=== PATIENT | female | born 1965 | race Caucasian/White ===

== ENCOUNTER 2020-08-23 08:37 | Outpatient (NON) | payer OTHER, SELFPAY ==
[2020-08-24 00:38] LABS: SARS-CoV-2 RNA PCR Negative
== END 2020-08-23 08:38 ==
PROVIDERS: PCP Family Medicine; Visit Provider Nurse Practitioner Family
DX: R68.89 Other general symptoms and signs (principal); Z20.828 Contact with and (suspected) exposure to other viral communicable diseases
CPT/HCPCS: 87635; C9803; U0003

== ENCOUNTER 2020-09-28 06:39 | Outpatient (NON) | payer OTHER, SELFPAY ==
[2020-09-29 14:57] LABS: SARS-CoV-2 RNA PCR Negative
== END 2020-09-28 06:40 ==
PROVIDERS: PCP Family Medicine; Visit Provider Physician Assistant Medical
DX: Z20.828 Contact with and (suspected) exposure to other viral communicable diseases (principal); R68.89 Other general symptoms and signs
CPT/HCPCS: 87635; C9803; U0003

== ENCOUNTER 2021-06-29 16:37 | Outpatient (CLI) | payer OTHER, SELFPAY ==
--- NOTE | ~2021-06-29 | MM_ITS ---
EXAMINATION: MM screening [facility] BI w jane HISTORY: Screening TECHNIQUE: Craniocaudal and mediolateral oblique 3-D tomosynthesis images were obtained and synthetic 2-D images were generated. CAD analysis was submitted and interpreted. COMPARISON: 03/28/2016 BREAST PARENCHYMAL COMPOSITION: There are scattered areas of fibroglandular density. FINDINGS: There is a new mass in the lower inner quadrant of the right breast, middle third, measurin g approximately 11 mm maximum dimension. The left breast is stable. Benign-appearing left breast masses and asymmetries are unchanged. IMPRESSION: 1. New 11 mm right breast mass, lower inner quadrant. 2. Additional mammographic views and possible breast ultrasound are recommended. BI-RADS Category 0: Incomplete: Needs additional imaging evaluation. Reviewed, dictated and finalized at location A. IMPRESSION: 1. New 11 mm right breast mass, lower inner quadrant. 2. Additional mammographic views and possible breast ultrasound are recommended . BI-RADS Category 0: Incomplete: Needs additional imaging evaluation.
== END 2021-06-29 16:38 | disposition home or self-care (01) ==
LOC: ANHIMG 16:41
PROVIDERS: PCP Family Medicine; Visit Provider Nurse Practitioner Family
DX: Z12.31 Encounter for screening mammogram for malignant neoplasm of breast (principal); R92.8 Other abnormal and inconclusive findings on diagnostic imaging of breast
CPT/HCPCS: 77063; 77067

== ENCOUNTER 2021-07-28 13:10 | Outpatient (CLI) | payer OTHER, SELFPAY ==
--- NOTE | ~2021-07-28 | MMUS_ITS ---
EXAMINATION: MM diagnostic maribel RT w jane, US breast RT complete HISTORY: New 11 mm lower inner quadrant right breast mass reported on 06/29/2021 screening mammogram e xaminations TECHNIQUE: Additional 3-D tomosynthesis images of the right breast were performed and synthetic 2-D i mages were generated. CAD analysis was submitted and interpreted. High resolution complete right raman st ultrasound was performed. COMPARISON: 06/29/2021 bilateral digital screening mammogram 03/28/2016 bilateral diagnostic digital mammogram and limited right breast ultrasound examination. Leah ast changes FINDINGS: MAMMOGRAPHIC FINDINGS: There is an approximately 7 x 9.5 mm circumscribed low-density opacity in the posterior aspect of the lower inner quadrant of the right breast. Additional scattered smaller low-density nodular opacities are noted. There is minimal benign calcification. No malignant calcification, skin thickening or retraction is e vident. ULTRASOUND: 5:00 5 cm from nipple: There is a circumscribed solid lesion measuring 5.8 x 10.9 x 8.1 mm. The kate ns are mildly irregular and there is internal vascularity on color flow imaging. Ultrasound-guided bi opsy is recommended. 8:00 2 cm from nipple: There is a parallel circumscribed heterogeneous hypoechoic lesion measuring 12 .6 x 4.6 x 8.7 mm, without internal vascularity or suspicious shadowing. IMPRESSION: 1. Indeterminate solid 5.8 x 10.9 x 8.1 mm mass at 5:00 5 cm from nipple, with mildly irregular sonog raphic margins 2. Ultrasound-guided biopsy of 5:00 lesion is recommended BI-RADS category 4, suspicious findings. Reviewed, dictated and finalized at location A. IMPRESSION: 1. Indeterminate solid 5.8 x 10.9 x 8.1 mm mass at 5:00 5 cm from nipple, with mildly irregular sonographic margins 2. Ultrasound-guided biopsy of 5:00 lesion is recommended BI-RADS category 4, suspicious findings.
== END 2021-07-28 13:11 | disposition home or self-care (01) ==
LOC: ANHIMG 13:12
PROVIDERS: PCP Family Medicine; Visit Provider Nurse Practitioner Family
DX: N63.14 Unspecified lump in the right breast, lower inner quadrant (principal); N63.13 Unspecified lump in the right breast, lower outer quadrant
CPT/HCPCS: 76641; 77061; 77065; G0279

== ENCOUNTER 2021-08-17 09:08 | Outpatient (CLI) | payer OTHER, SELFPAY ==
--- NOTE | ~2021-08-17 | MMUS_ITS ---
US breast biopsy RT w image, MM post biopsy invasive RT EXAMINATION: US GUIDED NEEDLE BIOPSY WITH VAC UUM ASSISTANCE DATE: 08/17/2021 11:06 CDT INDICATION: Right breast mass seen on recent examination. Ultrasound-guided core biopsy is requested to evaluate for malignancy. TECHNIQUE AND FINDINGS: The risks and potential benefits of the procedure were discussed with the patient, and written inform ed consent was obtained. After sterile preparation of the right breast, 1% lidocaine was utilized fo r local anesthesia. 1% lidocaine with epinephrine was used for deep anesthesia. A 10G vacuum-assisted biopsy gun needle was advanced through to the outer edge of the region of inter est from a inferior approach utilizing sonographic guidance. A total of three tissue core samples we re obtained through the lesion. An Inrad tissue marker clip was then placed at the biopsy site. Hemo stasis was achieved. The patient tolerated procedure well and there was no evidence of immediate complication. The patien t was given verbal instructions partly is from the department. Right breast mammograms to document t issue marker clip placement in the lower inner quadrant.. The tissue samples were submitted to surgic al pathology for histologic analysis. IMPRESSION: 1. Successful ultrasound-guided vacuum-assisted biopsy of right breast mass with tissue marker place ment. Please refer to pathology report for histologic analysis. Reviewed, dictated and finalized at location A. IMPRESSION: 1. Successful ultrasound-guided vacuum-assisted biopsy of right breast mass wi th tissue marker placement. Please refer to pathology report for histologic lacie lysis.
== END 2021-08-17 09:09 | disposition home or self-care (01) ==
PROVIDERS: PCP Family Medicine; Visit Provider Nurse Practitioner Family
DX: R92.8 Other abnormal and inconclusive findings on diagnostic imaging of breast (principal); D49.3 Neoplasm of unspecified behavior of breast
CPT/HCPCS: 19083; 88305; A4648

== ENCOUNTER 2021-12-04 13:59 | Outpatient (CLI) | payer OTHER, SELFPAY ==
[2021-12-04 15:14] LABS: Anion Gap 9 mmol/L (8-16); Blood Urea Nitrogen 23 mg/dL (7-17); Calcium 9.7 mg/dL (8.4-10.2); Carbon Dioxide 32 mmol/L (22-30); Chloride 99 mmol/L (98-107); Estimated Glomerular Filt Rate 58; Glucose 117 mg/dL (65-110); Potassium 2.9 mmol/L (3.4-5.0); Sodium 140 mmol/L (137-145)
== END 2021-12-04 14:00 | disposition home or self-care (01) ==
LOC: ANHSURGERY 14:02
PROVIDERS: Anesthesiology; PCP Family Medicine; Visit Provider Surgery
DX: Z79.899 Other long term (current) drug therapy (principal); Z01.818 Encounter for other preprocedural examination
CPT/HCPCS: 36415; 80048

== ENCOUNTER 2021-12-05 00:49 | Day surgery (SDC) | payer BC, OTHER, SELFPAY ==
[2021-12-01 11:35] VITALS: BMI 32.0
--- NOTE | 2021-12-01 11:56 | PC.NURSE ---
Report to the Outpatient Waiting Room, entrance under the green pavilion located off [facility], at time 8:30 on date 12/05/21. OR Time: 11:30. - You will be asked a series of questions to screen for COVID 19 for your protection. - A mask is required within the hospital. - No visitors are allowed at this time. Preoperative COVID Testing Requirements: TO BRING COPY OF CARD No COVID Test needed if: (proof is required; if not received patient will have Rapid Test prior to entry) - Patient has received COVID Vaccine at least 14 days prior to procedure date or - Patient has positive COVID test result within last 90 days of surgery date. COVID Test needed if above criteria is not met If not COVID vaccinated a COVID test must be conducted within 72 hours of surgery and patient is asked to isolate self from time of testing until procedure. You will go to the [facility] for your COVID testing. The [facility] is located at the corner of [address] from [facility]. You will only be called if COVID results are positive and your surgeon may reschedule your elective surgery date. Patients may have clear liquids (water, carbonated beverages, clear teas, apple juice) until 3 hours prior to surgery with a maximum of 20 ounces. - No food from midnight until time of surgery - Infants may have breast milk until 4 hours before surgery, infant formula 6 hours prior to surgery. - Children will be allowed to drink immediately following surgery. If applicable, please bring a bottle or sippy cup to assist with drinking. Juice, water, soda, and popsicles are readily available. For infants on formula, please bring formula the day of surgery. Pacifiers are allowed. Take the following medications with a SIP of water the morning of surgery: ALBUTEROL, XANAX, PAIN PILL (ALL ONLY IF NEEDED) Medications to discontinue per physician: N/A Date to take last dose: N/A Please no make-up, nail beninese, hairspray, perfume, deodorant, or body powder the day of surgery. No jewelry (including any body piercings) or valuables the day of surgery, leave them at home. Please take a shower or bath the night before, or the morning of, surgery with an antibacterial soap. Wear comfortable, loose fitting clothing. HIBICLENS SHOWER - Jewelry must be removed prior to entering the operating room. Rings and piercings that are not removed may be cut off. - The hospital will not accept responsibility for valuables. - Please leave all valuables, including medications, at home the day of surgery. If you are going home after surgery, a licensed tow truck driver must drive you home. - NO public transportation without another adult. - We recommend that an adult stay with you for 24 hours following discharge. - We also recommend that you do not drive, make important decision, drink alcoholic beverages, or take any drugs that were not prescribed by your health care provider for at least 24 hours after your discharge time. Follow any additional instructions given to you from your surgeon. Telephone instructions given to JACEK SIMONS and asked if any additional questions and then verbalized understanding. Patient advised to call surgeon office or pre surgery nurse liaison [phone] if any additional questions.
[2021-12-05] VITALS (7 sets, daily range): BP systolic 115–145; BP diastolic 61–81; PULSE 67–85; RESP 16–20; TEMP 36.3–36.8; O2SAT 94–100
--- NOTE | ~2021-12-05 | MM_ITS ---
EXAMINATION: MM needle loc RT, MM surgical specimen RT MAMMOGRAPHY SPECIMEN DATE: 12/05/2021 12:07 ELECTRICAL INSTALLATION SUPERVISOR INDICATION: Abnormal right breast mammogram. TECHNIQUE: The procedure for a mammography-guided needle localization was discussed with the patient' s. Risks and benefits were detailed, including risks of bleeding, infection, pain, and nondiagnostic specimen. The patient verbalized understanding and agreed to proceed. The time out was performed to verify the patient's name, date of , and site of procedure. The p atient was placed in right breast compression, and the skin overlying the right breast was prepped in usual fashion. Utilizing mammography guidance, a needle was advanced into the right breast. Two co nfirmatory films were obtained. The patient tolerated procedure without immediate complication. A specimen radiograph was performed.] FINDINGS: Two view confirmatory films of the right breast demonstrate a the wire adjacent to the main mass and tissue marker. The mass and tissue marker are contained within the surgical specimen.] IMPRESSION: 1. Successful mammography-guided right breast needle localization. Reviewed, dictated and finalized at location A. TRICAL INSTALLATION SUPERVISOR IMPRESSION: 1. Successful mammography-guided right breast needle localization.
[2021-12-05] MEDS: ACETAMINOPHEN 500 MG TABLET 1000 MG PO (09:19)
[2021-12-05] MEDS: KETOROLAC 15 MG/ML VIAL (*BKC) IV PUSH (09:20)
--- NOTE | 2021-12-05 10:45 | WPDANESEPPF ---
Anes - Initial Pre Proc Eval Procedure: Operation Date: 12/05/21 11:30 Proposed Procedures p Right Breast Lumpectomy with Ultrasound and/or Mammogram Guided Needle Localization - Ari Stinson DO Date/Time: 12/05/21 10:45 Surgeon: Ari Stinson DO Pre Op Diagnosis: abnormal mammogram right breast Patient Data Age: 55 Gender: F Height: 1.57 m Weight: 79.6 kg Last Vital Signs Temp 36.8 C 12/05/21 09:15 Pulse 73 12/05/21 09:15 Resp 16 12/05/21 09:15 BP 145/81 H 12/05/21 09:15 Pulse Ox 99 12/05/21 09:15 Allergies Allergy/AdvReac Type Severity Reaction Status Date / Time Penicillins Allergy Unknown Other Verified 12/05/21 10:22 Home Medications Medication Instructions Recorded Confirmed Type triamterene 75 See Rx Instructions .ROUTE 05/30/21 12/05/21 History mg-hydrochlorothiazide 50 mg tablet .COMPLEX tablet albuterol sulfate 90 mcg/actuation 2 inh INHALATION Q6H PRN #18 g 08/01/21 12/05/21 Rx aerosol inhaler estradiol 0.05 mg-norethindrone 1 patch TRANSDERMAL 2XW 09/18/21 12/05/21 History 0.14 mg/24 hr semiwkly transderm patch atorvastatin 10 mg tablet See Rx Instructions .ROUTE 09/25/21 12/05/21 Rx .COMPLEX #90 tablet benzonatate 100 mg capsule 100 mg PO TID PRN #30 cap 10/30/21 12/05/21 Rx hydrocodone 7.5 mg-acetaminophen 1 tablet PO DAILY #30 tablet 11/20/21 12/05/21 Rx 325 mg tablet tizanidine 4 mg tablet See Rx Instructions .ROUTE 11/20/21 12/05/21 Rx .COMPLEX #60 tablet alprazolam 1 mg tablet 2 mg PO QHS PRN #60 tablet 11/30/21 12/05/21 Rx dextroamphetamine-amphetamine 20 20 mg PO DAILY #30 tablet 11/30/21 12/05/21 Rx mg tablet duloxetine 60 mg PO HS 12/01/21 12/05/21 History Patient hx anesthesia problems: none Family hx anesthesia problems: none Results Review: All pre-operative results and documents have been reviewed as part of the pre-operative evaluation. [facility] Past Medical History Medical History (Updated 12/05/21 @ 10:48 by Ruel Robb MD) Abnormal Pap smear of cervix Anxiety Anxiety and depression BMI 30.0-30.9,adult BMI 31.0-31.9,adult BMI 32.0-32.9,adult Cervical radiculopathy due to degenerative joint disease of spine Chronic neck pain with history of cervical spinal surgery Essential (primary) hypertension Fibrocystic disease of both breasts Hypertension Major depressive disorder, single episode, unspecified Mixed hyperlipidemia Serous otitis media Tobacco abuse Surgical History Surgical History H/O: hysterectomy History of discectomy Family History Family History Father Hypertension Family history of malignant neoplasm Mother Family history of malignant neoplasm of kidney Renal cancer Sibling Hypertension Other Diabetes mellitus Family history of cardiovascular disease Social History Social History Smoking packs per day: 1 Smoking cigarettes per day: 20.0 Years smoked: 30 Smoking pack-years: 30.00 Smoking status: Current every day smoker Tobacco type: cigarettes Alcohol intake: never Substance use: never Substance use type: does not use Living arrangements: with family Additional occupation/education comments: , loc[employer] Gender identity (if verbalized by the patient): Female Spiritual care concerns: No Anes - Eval Final PreProcedure Day of Procedure 12/05/21 10:45 Patient weight: obese Heart: regular rate and rhythm Lungs: clear to auscultation and normal air movement Airway: Mallampati scale class II Neurological: alert and oriented Last oral intake: >/= 8 hours ASA classification: III Emergent: no Anesthetic plan: proceed Anesthesia type and monitoring: general LMA Results Review: All pre-operative results and documents have been reviewed as part of t
--- NOTE | 2021-12-05 11:24 | PM.IMHP ---
H&P: HPI History of Present Illness Date/Time: 12/05/21 11:24 Chief Complaint: right breast mass Narrative: 55 yo woman presents for right breast lumpectomy. 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 She reports no changes since seen in office. Review of Systems Review of Systems: All systems reviewed & are unremarkable except as noted in HPI and below Constitutional: Constitutional: Denies chills, Denies fever(s), Denies headache(s) and Denies weight loss Eyes: Eyes: Denies change in vision ENT: Denies dizziness, Denies headache(s), Denies neck mass and Denies throat swelling Cardiovascular: Cardiovascular: Denies chest pain, Denies lightheadedness and Denies dyspnea Respiratory: Respiratory: Denies cough, Denies dyspnea and Denies wheezing Gastrointestinal: Gastrointestinal: Denies abdominal pain, Denies change in bowel habits, Denies nausea and Denies vomiting Genitourinary: Genitourinary: Denies hematuria and Denies dysuria Musculoskeletal: Musculoskeletal: Reports as per HPI Integumentary/Breasts: Skin/Breast: Reports as per HPI Neurologic: Denies dizziness and Denies headache(s) Allergic/Immunologic: Allergic/Immunologic: Denies throat swelling and Denies wheezing [facility] Past Medical History Medical History (Updated 12/05/21 @ 10:48 by Ruel Robb MD) Abnormal Pap smear of cervix Anxiety Anxiety and depression BMI 30.0-30.9,adult BMI 31.0-31.9,adult BMI 32.0-32.9,adult Cervical radiculopathy due to degenerative joint disease of spine Chronic neck pain with history of cervical spinal surgery Essential (primary) hypertension Fibrocystic disease of both breasts Hypertension Major depressive disorder, single episode, unspecified Mixed hyperlipidemia Serous otitis media Tobacco abuse Surgical History Surgical History H/O: hysterectomy History of discectomy Family History Family History Father Hypertension Family history of malignant neoplasm Mother Family history of malignant neoplasm of kidney Renal cancer Sibling Hypertension Other Diabetes mellitus Family history of cardiovascular disease Social History Social History Smoking packs per day: 1 Smoking cigarettes per day: 20.0 Years smoked: 30 Smoking pack-years: 30.00 Smoking status: Current every day smoker Tobacco type: cigarettes Alcohol intake: never Substance use: never Substance use type: does not use Living arrangements: with family Additional occupation/education comments: [employer] Gender identity (if verbalized by the patient): Female Spiritual care concerns: No Meds Home Medications and Allergies Home Medications Medication Instructions Recorded Confirmed Type triamterene 75 See Rx Instructions .ROUTE 05/30/21 12/05/21 History mg-hydrochlorothiazide 50 mg tablet .COMPLEX tablet albuterol sulfate 90 mcg/actuation 2 inh INHALATION Q6H PRN #18 g 08/01/21 12/05/21 Rx aerosol inhaler estradiol 0.05 mg-norethindrone 1 patch TRANSDERMAL 2XW 09/18/21 12/05/21 History 0.14 mg/24 hr semiwkly transderm patch atorvastatin 10 mg tablet See Rx Instructions .ROUTE 09/25/21 12/05/21 Rx .COMPLEX #90 tablet benzonatate 100 mg capsule 100 mg PO TID PRN #30 cap 10/30/21 12/05/21 Rx hydrocodone 7.5 mg-acetaminophen 1 tablet PO DAILY #30 tablet 11/20/21 12/05/21 Rx 325 mg tablet tizanidine 4 mg tablet See Rx Instructions .ROUTE 11/20/21 12/05/21 Rx .COMPLEX #60 tablet alprazolam 1 mg tablet 2 mg PO QHS PRN #60 tablet 11/30/21 12/05/21 Rx dextroamphetamine-amphetamine 20 20 mg PO DAILY #30 tablet 11/30/21 12/05/21 Rx mg tablet duloxetine 60 mg PO HS 12/01/21 12/05/21 History Allergies Allergy/AdvReac Type S
--- NOTE | 2021-12-05 11:26 | WPDHPUPDATE1 ---
History and Physical Update Update Date/Time: 12/05/21 11:26 History and Physical has been reviewed, including an updated exam of the patient. There are NO changes in the patient's condition. Risks, benefits, and alternatives have been discussed and questions answered. Patient agrees to proceed with procedure.
[2021-12-05] MEDS: CLINDAMYCIN 900 MG/D5W 50 ML 900 MG/50 ML PIGGYBACK 50 MG IVPB (11:32)
[2021-12-05] MEDS: BUPIVACAINE HCL 0.5% PF 30 ML VIAL 10 ML INFILTRATE (12:08)
[2021-12-05] MEDS: LACTATED RINGERS 1,000 ML 30 ML IV CONT (12:17)
--- NOTE | 2021-12-05 12:17 | W.PM.PROC2 ---
Procedure Note - Detailed Date of Procedure 12/05/21 Pre-op Diagnosis abnormal mammogram right breast Post-op Diagnosis same Procedure Performed Needle localized right breast lumpectomy Surgeon Ari Stinson, DO Anesthesia general and local (0.5% bupivacaine) Indications This is a 55-year-old woman who presented with an abnormal mammogram several months ago. She was then sent for an ultrasound-guided core needle biopsy. 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 She was then referred for surgical excision. I discussed the treatment options with the patient and decision was made to proceed with right breast needle localized lumpectomy. Findings Needle localized lumpectomy was performed. The wire was placed by Radiology preoperatively and the images were reviewed prior to lumpectomy. The tissue around the wire was carefully excised. The specimen was then marked with a short suture superior and long suture lateral. This was then sent for Radiology confirmation that the marker is within the specimen. It was then sent to the lab for pathology. Description of Procedure Procedure as well as risks, benefits, and alternatives were discussed with the patient. Written consent was obtained and placed in chart prior to procedure. Patient was brought back to surgical suite. She was placed supine on operating table. Time-out was done to confirm patient and procedure. She was then placed under general LMA by the anesthesia department. Her right breast area was prepped and draped in sterile fashion using chlorhexidine prep. 0.5% bupivacaine was infiltrated locally around the skin around the wire. A 3 cm transverse incision was then made using a 15 blade scalpel. Electrocautery was then used for hemostasis and for dissection through the subcutaneous tissue. Once the breast tissue was reached, I then carefully dissected around the wire with electrocautery to take a section of the breast tissue around it. The specimen was carefully completely excised with electrocautery. It was then marked with a short suture superiorly and a long suture laterally. The specimen was then sent to Radiology for confirmation. The wound bed was then carefully inspected. Hemostasis appeared adequate. The deep dermis was then reapproximated using 3-0 Vicryl inverted interrupted sutures. The skin was then approximated using 4 Monocryl running subcuticular suture. Exofin glue was then applied on top. The patient was then awakened from anesthesia and transferred to recovery. Estimated Blood Loss 5 Pathology yes (Right breast lumpectomy--short suture superior, long suture lateral) Complications No immediate complications Condition stable Disposition same day
== END 2021-12-05 13:57 | disposition home or self-care (01) ==
PROVIDERS: PCP Family Medicine; Visit Provider Surgery
PROC: (CPT 19301; principal; 2021-12-05 11:30)
DX: D24.1 Benign neoplasm of right breast (principal); I10 Essential (primary) hypertension; E78.2 Mixed hyperlipidemia; F41.8 Other specified anxiety disorders; F17.210 Nicotine dependence, cigarettes, uncomplicated; E66.9 Obesity, unspecified; Z68.32 Body mass index [BMI] 32.0-32.9, adult; Z79.51 Long term (current) use of inhaled steroids; Z79.891 Long term (current) use of opiate analgesic
CPT/HCPCS: 19301; 19281; 36415; 76098; 80048; 88305; 88307; A9270; C1769; J1100; J1885; J2250; J2270; J2405; J2704; J7120

== ENCOUNTER 2023-02-20 12:45 | Outpatient (CLI) | payer OTHER, SELFPAY ==
--- NOTE | ~2023-02-20 | MM_ITS ---
EXAMINATION: MM screening maribel BI w jane HISTORY: Screening mammogram TECHNIQUE: Craniocaudal and mediolateral oblique 3-D tomosynthesis images were obtained and synthetic 2-D images were generated. Bilateral rotated lateral CC views. CAD analysis was submitted and interp reted. COMPARISON: 07/28/2021 diagnostic right mammogram and complete right breast ultrasound 06/29/2021 bilateral screening mammogram 03/28/2016 bilateral diagnostic mammogram BREAST PARENCHYMAL COMPOSITION: There are scattered areas of fibroglandular density. FINDINGS: There is stable chronic fibroadenoma asymmetry. Occasional bilateral benign calcifications. There is no evidence of suspicious mass, calcification, or architectural distortion to suggest malig guero in either breast. There has been no suspicious interval change. IMPRESSION: 1. No mammographic evidence of malignancy. 2. Recommend routine screening mammography in one year. BI-RADS Category 2: Benign finding(s). Reviewed, dictated and finalized at location A.
== END 2023-02-20 12:46 | disposition home or self-care (01) ==
LOC: ANHIMG 12:47
PROVIDERS: PCP Family Medicine; Visit Provider Obstetrics & Gynecology
DX: Z12.31 Encounter for screening mammogram for malignant neoplasm of breast (principal)
CPT/HCPCS: 77063; 77067

== ENCOUNTER 2023-04-18 02:26 | Day surgery (SDC) | payer OTHER, SELFPAY ==
[2023-04-04 10:56] VITALS: BMI 32.6
--- NOTE | 2023-04-18 10:07 | PM.HPGS ---
History of Present Illness History of Present Illness Consent: Risks, benefits, and alternatives have been discussed and questions answered. Patient agrees to proceed with procedure. Chief complaint: BRBPR Narrative: Vanessa Wilcox is a 57 year old female Has a history of recent rectal bleeding. She describes bright red blood per rectum that occurred a few months ago. She has had none since. She denies any significant abdominal or rectal pain but did notice some left posterior flank pain during that interval. Her family history is noncontributory. Patient presents today for colonoscopy to assess more thoroughly. Family history noncontributory. Review of Systems Review of Systems: Review of systems noncontributory. [facility] Past Medical History Medical History Abnormal Pap smear of cervix Anxiety Anxiety and depression BMI 30.0-30.9,adult BMI 31.0-31.9,adult BMI 32.0-32.9,adult BMI 32.0-32.9,adult BMI 33.0-33.9,adult BMI greater than 30 Cervical radiculopathy due to degenerative joint disease of spine Chronic neck pain with history of cervical spinal surgery COVID-19 Essential (primary) hypertension Fibrocystic disease of both breasts Hypertension Major depressive disorder, single episode, unspecified Mixed hyperlipidemia Serous otitis media Tobacco abuse Surgical History Surgical History H/O: hysterectomy History of discectomy Family History Family History Father Hypertension Family history of malignant neoplasm Mother Family history of malignant neoplasm of kidney Renal cancer Sibling Hypertension Other Diabetes mellitus Family history of cardiovascular disease Social History Social History Smoking packs per day: 1.5 Smoking cigarettes per day: 30.0 Years smoked: 30 Smoking pack-years: 45.00 Smoking status: Current some day smoker Tobacco type: cigarettes Alcohol intake: former Substance use: never Substance use type: does not use Living arrangements: with family Occupation/Education: occupation Additional occupation/education comments: [employer] Gender identity (if verbalized by the patient): Female Spiritual care concerns: No Meds Home Medications and Allergies Home Medications Medication Instructions Recorded Confirmed Type estradiol 0.05 mg/24 hr semiweekly 1 patch transdermal 2XW 01/16/22 04/04/23 History transdermal patch duloxetine 60 mg capsule,delayed 60 mg PO HS #90 caps 12/21/22 04/04/23 Rx release nicotine 21 mg/24 hr daily 1 patch transdermal DAILY 02/28/23 04/04/23 History transdermal patch sodium,potassium,mag sulfates 17.5 See Rx Instructions PO .COMPLEX 03/07/23 Rx gram-3.13 gram-1.6 gram oral soln #354 mL (Suprep Bowel Prep Kit) albuterol sulfate 90 mcg/actuation 2 inh inhalation Q6H PRN shortness 03/12/23 04/04/23 Rx aerosol inhaler of breath or wheezing #18 grams alprazolam 1 mg tablet (Xanax) 2 mg PO QHS PRN anxiety #60 tabs 03/21/23 04/04/23 Rx atorvastatin 10 mg tablet 10 mg PO DAILY 04/04/23 04/04/23 History hydrocodone 10 mg-acetaminophen 1 tablet PO DAILY PRN pain 04/04/23 04/04/23 History 325 mg tablet tizanidine 4 mg tablet 4 mg PO TID PRN Muscle Spasm 04/04/23 04/04/23 History triamterene 75 1 tablet PO DAILY 04/04/23 04/04/23 History mg-hydrochlorothiazide 50 mg tablet azithromycin 250 mg tablet See Rx Instructions PO .COMPLEX #6 04/11/23 Rx (Zithromax) tabs dextroamphetamine-amphetamine 20 20 mg PO DAILY #30 tabs 04/12/23 Rx mg tablet (Adderall) Allergies Allergy/AdvReac Type Severity Reaction Status Date / Time Penicillins Allergy Unknown Other Verified 04/04/23 10:57 Exam Narrative: Physical exam reveals patient to be alert. Vit
[2023-04-18 10:13] VITALS: BP 156/74; PULSE 87; RESP 17; TEMP 36.4; O2SAT 98
[2023-04-18] MEDS: LACTATED RINGERS 1,000 ML 150 ML IV CONT (10:22)
[2023-04-18 11:42] VITALS: BP 136/86; PULSE 74; RESP 25; O2SAT 97
[2023-04-18 11:52] VITALS: BP 136/94; PULSE 75; RESP 19; O2SAT 99
[2023-04-18 12:02] VITALS: BP 132/80; PULSE 76; RESP 28; O2SAT 97
== END 2023-04-18 12:08 | disposition home or self-care (01) ==
PROVIDERS: PCP Family Medicine; Visit Provider Internal Medicine Gastroenterology
PROC: 0DJD8ZZ Inspection of Lower Intestinal Tract, Via Natural or Artificial Opening Endoscopic (ICD-10-PCS; CPT 45378; principal; 2023-04-18 11:30)
DX: Z12.11 Encounter for screening for malignant neoplasm of colon (principal); K64.8 Other hemorrhoids; K62.5 Hemorrhage of anus and rectum; I10 Essential (primary) hypertension; E78.2 Mixed hyperlipidemia; F41.8 Other specified anxiety disorders; F17.210 Nicotine dependence, cigarettes, uncomplicated; Z79.51 Long term (current) use of inhaled steroids
CPT/HCPCS: 45378; J2704; J7120

== ENCOUNTER 2024-05-19 14:28 | Outpatient (CLI) | payer OTHER, SELFPAY ==
--- NOTE | ~2024-05-19 | MM_ITS ---
EXAMINATION: MM screening maribel BI w jane HISTORY: Screening mammogram TECHNIQUE: Craniocaudal and mediolateral oblique 3-D tomosynthesis images were obtained and synthetic 2-D images were generated. CAD analysis was submitted and interpreted. COMPARISON: 02/20/2023, 06/29/2021 BREAST PARENCHYMAL COMPOSITION:Not Dense. There are scattered areas of fibroglandular density. FINDINGS: There is a new nodular asymmetry at the upper left breast. Small low-density bilaterally ma sses are similar to prior exams, suggestive of intramammary lymph nodes. No suspicious microcalcifica tions. IMPRESSION: New nodular asymmetry at the upper left breast. Spot compression and true lateral views, and possibl y ultrasound, recommended for further evaluation. BI-RADS Category 0: Incomplete: Needs additional imaging evaluation. Reviewed, dictated and finalized at [facility]. IMPRESSION: New nodular asymmetry at the upper left breast. Spot compression and true late ral views, and possibly ultrasound, recommended for further evaluation. BI-RADS Category 0: Incomplete: Needs additional imaging evaluation.
== END 2024-05-19 14:29 | disposition home or self-care (01) ==
PROVIDERS: PCP Family Medicine; Visit Provider Obstetrics & Gynecology
DX: Z12.31 Encounter for screening mammogram for malignant neoplasm of breast (principal); R92.8 Other abnormal and inconclusive findings on diagnostic imaging of breast
CPT/HCPCS: 77063; 77067

== ENCOUNTER 2024-07-03 12:06 | Outpatient (CLI) | payer OTHER, SELFPAY ==
--- NOTE | ~2024-07-03 | MMUS_ITS ---
EXAMINATION: MM diagnostic maribel LT w jane, US breast LT limited HISTORY: Follow-up left breast mass TECHNIQUE: Additional 3-D tomosynthesis images of the left breast were performed and synthetic 2-D im ages were generated. CAD analysis was submitted and interpreted. High resolution Limited left breast ultrasound was performed. COMPARISON: Comparison to multiple prior studies sequentially, with oldest reviewed study dated 03/2023. BREAST PARENCHYMAL COMPOSITION: Not dense: There are scattered areas of fibroglandular density. FINDINGS: MAMMOGRAPHIC FINDINGS: No architectural distortion or suspicious calcifications. There is a cluster of masses in the upper a spect of the left breast posteriorly. ULTRASOUND: Limited left breast ultrasound: At 1:00, 8 cm from the nipple there is a cluster of cysts measuring u p to 1.4 cm. At 2:00, 8 cm from the nipple there is a 6 mm cyst. There is also a round 5 mm hypoechoi c mass without posterior features. IMPRESSION: 1. Probable benign left breast mass at 2:00, 8 cm from the nipple measuring 5 mm. Multiple cysts are identified in the left breast at 1 and 2:00 8 cm from the nipple. 2. Recommend 6 month follow-up diagnostic left mammogram and Limited left breast ultrasound BI-RADS category 3, probably benign findings. Reviewed, dictated and finalized at location [facility]. IMPRESSION: 1. Probable benign left breast mass at 2:00, 8 cm from the nipple measuring 5 m m. Multiple cysts are identified in the left breast at 1 and 2:00 8 cm from the nipple. 2. Recommend 6 month follow-up diagnostic left mammogram and Limited left breas t ultrasound BI-RADS category 3, probably benign findings.
== END 2024-07-03 12:07 | disposition home or self-care (01) ==
LOC: ANHIMG 12:07
PROVIDERS: PCP Family Medicine; Visit Provider Obstetrics & Gynecology
DX: R92.8 Other abnormal and inconclusive findings on diagnostic imaging of breast (principal)
CPT/HCPCS: 76642; 77061; 77065; G0279

== ENCOUNTER 2025-02-08 13:17 | Outpatient (CLI) | payer OTHER, SELFPAY ==
--- NOTE | ~2025-02-08 | MMUS_ITS ---
EXAMINATION: MM diagnostic maribel LT w jaen, US breast LT limited HISTORY: 59-year-old woman with a personal history of right-sided breast cancer in 2020 presents for 6 month diagnostic follow-up of an asymmetry within the left breast seen initially on screening exami nation dated 05/19/2024 with further diagnostic evaluation 07/03/2024. TECHNIQUE: Additional 3-D tomosynthesis images of [the left breast were performed and synthetic 2-D i mages were generated. CAD analysis was submitted and interpreted. High resolution limited left breast ultrasound was performed. COMPARISON: 07/03/2024 and dating back to 02/20/2023 BREAST PARENCHYMAL COMPOSITION: Not Dense. There are scattered areas of fibroglandular density. FINDINGS: MAMMOGRAPHIC FINDINGS: Redemonstration of multiple left breast asymmetries within the upper outer quadrant, posterior depth. No architectural distortion or suspicious microcalcifications are identified. Bulky calcifications are detected bilaterally, stable and benign in appearance. ULTRASOUND: Multiple well-circumscribed anechoic foci are demonstrated within the left breast. Specifically: At the 1:00 position, approximately 8 cm from the nipple is a morphologically benign cluster of simpl e cysts, for which no further follow-up is needed. At the 2:00 position, approximately 8 cm from the nipple is a well-circumscribed, anechoic, avascular focus with increased through transmission, consistent with a simple cyst for which no further follow -up is needed. At the 3:00 position, approximately 4 cm from the nipple is a well-circumscribed anechoic avascular s tructure with increased through transmission measuring 2.5 mm in greatest dimension, consistent with a simple cyst for which no further follow-up is needed. Sonographic evaluation of the remainder of the upper outer quadrant of the left breast demonstrates b enign fibroglandular elements without a cystic or solid lesion of concern. IMPRESSION: No mammographic/tomographic or sonographic evidence to suggest the presence of malignancy. Resumption of yearly mammography is recommended. BI-RADS Category 2: Benign finding(s). Reviewed, dictated and finalized at location [facility]. IMPRESSION: No mammographic/tomographic or sonographic evidence to suggest the presence of malignancy. Resumption of yearly mammography is recommended. BI-RADS Category 2: Benign finding(s).
--- OUTSIDE RECORDS SUMMARY | 2025-02-08 15:08 | XMS_ITS | CONTINUITY OF CARE DOCUMENT ---
Author Name brandan gipson Address Unknown Organization [facility] Address [address] [place] [address] Phone [phone] Care Team Providers Care Bone Char Kiln Operator Name Role Phone Mike MILLS, Lizbeth Unavailable JJ FREDERICK MD Unavailable JACQUELINE MILLS, AWAIS F Unavailable INSURANCE PROVIDERS Payer name Policy type / Coverage type [facility] [employer] ID K[place]LEY [facility] [id number]
== END 2025-02-08 13:18 | disposition home or self-care (01) ==
LOC: ANHIMG 13:18
PROVIDERS: PCP Family Medicine; Visit Provider Obstetrics & Gynecology
DX: R92.8 Other abnormal and inconclusive findings on diagnostic imaging of breast (principal)
CPT/HCPCS: 76642; 77061; 77065; G0279